=== PATIENT | female | born 1950 | race African-American/Black ===

== ENCOUNTER 2017-02-01 14:30 | Inpatient (IN) | payer MEDICARE, MEDICAID ==
[~2017-02-01] VITALS: Ht 175.3 cm; Wt 81.6 kg
[~2017-02-01 14:30] MED LIST: AMBIEN10 M1 ORAL; ANTIVERT25 MG ORAL; ARICEPT10 MG ORAL; MOBIC7.5 MG ORAL; RAMIPRIL5 MG ORAL; SIMVASTATIN20 MG ORAL; TOPROL XL50 MG ORAL; TRAMADOL HCL50 MG ORAL; ZOLOFT25 MG ORAL
[2017-02-01 14:45] VITALS: BP 141/82
[2017-02-01] MEDS ORDERED: Sodium Chloride 500ML 500 ML IV ONE (14:57)
[2017-02-01 15:31] LABS: BASOPHILS % (AUTO) 1.2 % (0.0-2.0); EOSINOPHILS % (AUTO) 0.8 % (0.0-3.0); LYMPHOCYTES % (AUTO) 20.7 % (20.0-45.0); MEAN CORPUSCULAR HEMOGLOBIN 33.4 PG (27.0-31.0); MEAN CORPUSCULAR HGB CONC 32.6 G/DL (32.0-36.0); MEAN CORPUSCULAR VOLUME 103 FL (80-99); MEAN PLATELET VOLUME 8.2 FL (6.5-10.1); MONOCYTES % (AUTO) 8.4 % (1.0-10.0); NEUTROPHILS % (AUTO) 68.9 % (45.0-75.0); PLATELET COUNT 182 K/UL (150-450); RED BLOOD COUNT 3.96 M/UL (4.20-5.40); WHITE BLOOD COUNT 7.1 K/UL (4.8-10.8)
[2017-02-01 16:14] LABS: ANION GAP 11 mmol/L (5-15); CALCIUM 9.4 MG/DL (8.5-10.1); CARBON DIOXIDE 27 MMOL/L (21-32); CHLORIDE 107 MMOL/L (98-107); CREATININE 1.1 MG/DL (0.55-1.30); GLOMERULAR FILTRATION RATE > 60 mL/min (>60); POTASSIUM 3.8 MMOL/L (3.5-5.1); SODIUM 145 MMOL/L (136-145)
[2017-02-01 16:23] LABS: ALANINE AMINOTRANSFERASE 22 U/L (12-78); ASPARTATE AMINO TRANSFERASE 20 U/L (15-37)
[2017-02-01 16:26] LABS: APPEARANCE,URINE CLEAR; KETONES,URINE NEGATIVE (NEGATIVE); NITRITE,URINE NEGATIVE (NEGATIVE); PH,URINE 6 (4.5-8.0); PROTEIN,URINE NEGATIVE (NEGATIVE); UROBILINOGEN,URINE NORMAL MG/DL (0.0-1.0)
[2017-02-01 16:27] LABS: CKMB < 0.5 NG/ML (0.0-3.6)
[2017-02-01 16:31] LABS: LEUKOCYTE ESTERASE ,URINE TRACE (NEGATIVE); RBC,URINE 0-2 /HPF (0 - 2); SQUAMOUS EPITHELIAL CELL,UR FEW /LPF (NONE/OCC)
[2017-02-01 16:32] LABS: MUCUS,URINE FEW /LPF (NONE/OCC)
[2017-02-01 17:15] VITALS: BP 173/101
[2017-02-01 18:03] VITALS: BP 170/103
[2017-02-01] MEDS ORDERED: PAROXETINE HCL40 MG (18:45)
[2017-02-01] MEDS ORDERED: LISINOPRIL20 MG (18:45)
[2017-02-01] MEDS ORDERED: HYDRALAZINE HCL25 M2 (18:45)
[2017-02-01] MEDS ORDERED: MIRTAZAPINE45 MG (18:45)
[2017-02-01] MEDS ORDERED: SAPHRIS10 MG (18:45)
[2017-02-01] MEDS ORDERED: METOPROLOL TART50 M1 (18:45)
[2017-02-01] MEDS ORDERED: AMBIEN CR12.5 MG (18:45)
[2017-02-01] MEDS ORDERED: ANORO ELLIPTA1 EACH (18:45)
[2017-02-01 19:20] VITALS: BP 165/91
[2017-02-01 20:50] VITALS: BP 154/93
--- NOTE | 2017-02-01 20:53 | Emergency Room Report ---
History of Present Illness General Chief Complaint: General Complaint Source: Patient Present Illness HPI 66-year-old female presents ED complaining of shortness of breath. States she' s been having shortness of breath for the last several days. Feel short of breath at rest. Denies any chest pain. Denies any fevers or chills. Denies cough. Patient states she also feels weak. Denies sick contacts or recent travel. No other aggravating relieving factors. Denies any other associated symptoms Allergies: Coded Allergies: CODEINE (Unverified Allergy, Unknown, 10/03/15) Patient History Past Medical History: HTN, GERD Pertinent Family History: none Social History: Denies: smoking, alcohol use, drug use Now: No Immunizations: UTD Reviewed Nursing Documentation: PMH: Agreed, PSxH: Agreed Nursing Documentation-PMH Hx Cardiac Problems: Yes - MurmurHyperlipidemia, Goiter Hx Hypertension: Yes Hx Gastrointestinal Problems: Yes - GERD Hx Neurological Problems: Yes - Scoliosis AMS, muscle spasm Review of Systems All Other Systems: negative except mentioned in HPI Physical Exam Vital Signs Date Time Temp Pulse Resp B/P (MAP) Pulse Ox O2 Delivery O2 Flow Rate FiO2 02/01/17 14:35 97.5 81 20 138/80 99 Room Air Sp02 EP Interpretation: reviewed, normal General Appearance: no apparent distress, alert, GCS 15, non-toxic Head: normocephalic, atraumatic Eyes: bilateral eye normal inspection, bilateral eye PERRL ENT: hearing grossly normal, normal pharynx, no angioedema, normal voice Neck: full range of motion, supple/symm/no masses Respiratory: chest non-tender, lungs clear, normal breath sounds, speaking full sentences Cardiovascular #1: regular rate, rhythm, no edema Cardiovascular #2: 2+ carotid (R), 2+ carotid (L), 2+ radial (R), 2+ radial (L) , 2+ dorsalis pedis (R), 2+ dorsalis pedis (L) Gastrointestinal: normal bowel sounds, non tender, soft, non-distended, no guarding, no rebound Rectal: deferred Genitourinary: normal inspection, no CVA tenderness Musculoskeletal: back normal, gait/station normal, normal range of motion, non- tender Neurologic: alert, oriented x3, responsive, motor strength/tone normal, sensory intact, speech normal Psychiatric: judgement/insight normal, memory normal, mood/affect normal, no suicidal/homicidal ideation Reflexes: 3+ bicep (R), 3+ bicep (L), 3+ tricep (R), 3+ tricep (L), 3+ knee (R) , 3+ knee (L) Skin: normal color, no rash, warm/dry, well hydrated Lymphatic: no adenopathy Medical Decision Making Diagnostic Impression: Primary Impression: SOB (shortness of breath) ER Course Hospital Course 66-year-old female presents ED complaining of SOB at rest Differential diagnoses include: WA/unstable angina, PE, bronchitis, asthma Clinical course 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 After initial history and physical I ordered labs, EKG, chest x-ray, IVFs labs reviewed- no leukocytosis, hemoglobin/hematocrit stable, electrolytes ok, troponins negative, d-dimer elevated EKG - NSR, no acute ischemic changes, twave inversions in lateral leads Chest x-ray- unremarkable CTA chest- nondiagnostic for PE Patient remained short of breath while at rest. I recommended patient be admitted patient agrees with plan. Case discussed with Dr. Solis and he agreed to accept the patient to his service for further care and support I. I feel this is a highly complex case requiring extensive working including EKG/Rhythm strip, Xray/CT/US, Blood/urine lab work, repeat exams while in ED, and administration of strong opiates/narcotics for pain control, admission to hospital or close patient follow up. Diagnosis - Shortness of Breath admitted to telemetry in serious condition Labs Test 02/01/17 15:10 02/01/17 16:01 White Blood Count 7.1 K/UL (4.8-10.8) Red Blood Count 3.96 M/UL (4.20-5.40) Hemoglobin 13.2 G/DL (12.0-16.0) Hematocrit 40.6 % (37.0-47.0) Mean Corpuscular Volume 103 FL (80-99) Mean Corpuscular Hemoglobin 33.4 PG (27.0-31.0) Mean Corpuscular Hemoglobin Concent 32.6 G/DL (32.0-36.0) Red Cell Distribution Width 12.0 % (11.6-14.8) Platelet Count 182 K/UL (150-450) Mean Platelet Volume 8.2 FL (6.5-10.1) Neutrophils (%) (Auto) 68.9 % (45.0-75.0) Lymphocytes (%) (Auto) 20.7 % (20.0-45.0) Monocytes (%) (Auto) 8.4 % (1.0-10.0) Eosinophils (%) (Auto) 0.8 % (0.0-3.0) Basophils (%) (Auto) 1.2 % (0.0-2.0) D-Dimer 4.12 mg/L FEU (0.00-0.49) Sodium Level 145 MMOL/L (136-145) Potassium Level 3.8 MMOL/L (3.5-5.1) Chloride Level 107 MMOL/L (98-107) Carbon Dioxide Level 27 MMOL/L (21-32) Anion Gap 11 mmol/L (5-15) Blood Urea Nitrogen 14 mg/dL (7-18) Creatinine 1.1 MG/DL (0.55-1.30) Estimat Glomerular Filtration Rate > 60 mL/min (>60) Glucose Level 136 MG/DL (74-106) Calcium Level 9.4 MG/DL (8.5-10.1) Total Bilirubin 0.8 MG/DL (0.2-1.0) Aspartate Amino Transf (AST/SGOT) 20 U/L (15-37) Alanine Aminotransferase (ALT/SGPT) 22 U/L (12-78) Alkaline Phosphatase 52 U/L (46-116) Total Creatine Kinase 131 U/L (26-140) Creatine Kinase MB < 0.5 NG/ML (0.0-3.6) Creatine Kinase MB Relative Index 0.3 Troponin I 0.006 ng/mL (0.000-0.056) Pro-B-Type Natriuretic Peptide 203 pg/mL (0-125) Total Protein 7.0 G/DL (6.4-8.2) Albumin 3.5 G/DL (3.4-5.0) Globulin 3.5 g/dL Albumin/Globulin Ratio 1.0 (1.0-2.7) Urine Color Yellow Urine Appearance Clear Urine pH 6 (4.5-8.0) Urine Specific [place] 1.015 (1.005-1.035) Urine Protein Negative (NEGATIVE) Urine Glucose (UA) Negative (NEGATIVE) Urine Ketones Negative (NEGATIVE) Urine Occult Blood Negative (NEGATIVE) Urine Nitrite Negative (NEGATIVE) Urine Bilirubin Negative (NEGATIVE) Urine Urobilinogen Normal MG/DL (0.0-1.0) Urine Leukocyte Esterase Trace (NEGATIVE) Urine RBC 0-2 /HPF (0 - 2) Urine WBC 2-4 /HPF (0 - 2) Urine Squamous Epithelial Cells Few /LPF (NONE/OCC) Urine Bacteria None /HPF (NONE) Urine Mucus Few /LPF (NONE/OCC) EKG Diagnostic Results Rate: normal Rhythm: NSR ST Segments: other - twave inversions in lateral leads ASA given to the pt in ED: No Rhythm Strip Diag. Results EP Interpretation: yes Rhythm: NSR, no PVC's Chest X-Ray Diagnostic Results Chest X-Ray Diagnostic Results : Chest X-Ray Ordered: Yes # of Views/Limited/Complete: 1 View Indication: Shortness of Breath EP Interpretation: Yes Interpretation: no consolidation, no effusion, no pneumothorax, no acute cardiopulmonary disease Impression: No acute disease Electronically Signed by: Electronically signed by Cj Gupta MD CT/MRI/US Diagnostic Results CT/MRI/US Diagnostic Results : Imaging Test Ordered: CTA CHest Impression no evidence of PE Last Vital Signs Date Time Temp Pulse Resp B/P (MAP) Pulse Ox O2 Delivery O2 Flow Rate FiO2 02/01/17 19:20 98.0 63 22 165/91 98 Room Air Status: improved Disposition: ADMITTED INPATIENT Condition: Serious Referrals: NON PHYSICIAN (PCP) CJ GUPTA M.D. Feb 01, 2017 20:53
[2017-02-01 21:10] VITALS: BP 162/100
[2017-02-01] MEDS ORDERED: Zolpidem 5mg tab ORAL PRN (21:45)
[2017-02-01] MEDS ORDERED: traMADol 50mg tab ORAL PRN (21:45)
[2017-02-01] MEDS ORDERED: Albuterol/Ipratropium 3ml neb HHN PRN (21:45)
[2017-02-01] MEDS: HydrALAZINE 50mg tab ORAL SCH (22:11)
[2017-02-02] VITALS: BP 131/84
[2017-02-02 04:02] VITALS: BP 133/80
[2017-02-02] MEDS: HydrALAZINE 50mg tab ORAL SCH ×3 (06:00→21:05)
[2017-02-02 08:00] VITALS: BP 147/86
[2017-02-02] MEDS: Metoprolol Succinate XL 50mg tab ORAL SCH (08:21)
[2017-02-02] MEDS: Meclizine 25mg tab ORAL SCH ×3 (09:00→18:00)
[2017-02-02] MEDS: Heparin 5000 units/ml inj SUBQ SCH ×2 (09:00→20:41)
[2017-02-02] MEDS: PARoxetine 10mg tab ORAL SCH (09:00)
[2017-02-02] MEDS ORDERED: Lisinopril 20mg tab ORAL SCH (09:00)
[2017-02-02] MEDS: Donepezil 10mg tab ORAL SCH (09:00)
--- NOTE | 2017-02-02 09:31 | Diagnostic Imaging Report ---
Indication: Shortness of breath Technique: CT pulmonary angiogram performed utilizing automated exposure control with intravenous contrast. Axial, sagittal and coronal reconstructions were obtained. 3-D volumetric reconstructions were also performed. CT dose: Total DLP 883 mGycm; CTDI vol 23.9 mGy Comparison: Chest x-ray from earlier the same day Findings: There is inadequate opacification of the pulmonary arteries limiting evaluation. There is no evidence of aortic dissection. Atherosclerotic changes are present. There is trace pericardial fluid. No pleural effusion is identified. Linear and dependent opacities are seen within the bilateral lower lobes suggestive of atelectasis or scarring. There is no bulky mediastinal or hilar adenopathy. There is heterogeneous appearance of the thyroid with apparent hypodense nodules measuring up to 1.4 cm on the left. Degenerative changes of the spine are seen. Impression: Inadequate opacification of the pulmonary arteries limiting evaluation for pulmonary embolus. No gross central pulmonary embolus but the pulmonary emboli otherwise not adequately evaluated. Repeat examination or VQ scan recommended for further evaluation. Mild linear and dependent bilateral lower lobe opacities could represent atelectasis or scarring. Atherosclerotic changes. Heterogeneous thyroid with hypodense nodules measuring up to 1.4 cm on the left. Correlation with ultrasound recommended. Other findings as above. The CT scanner at [facility] is accredited by the [employer] and the scans are performed using protocols designed to limit radiation exposure to as low as reasonably achievable to attain images of sufficient resolution adequate for diagnostic evaluation.
--- NOTE | 2017-02-02 10:55 | Diagnostic Imaging Report ---
Indication: Shortness of breath Technique: XRAY CHEST 1 V Comparison: 10/03/15 Findings: Cardiac silhouette is prominent. There is no consolidation or pleural effusion. Osseous structures are grossly stable. Impression: No acute cardiopulmonary disease.
[2017-02-02 12:33] VITALS: BP 141/97
--- NOTE | 2017-02-02 15:04 | Cardiology Report ---
APPROVED REPORT EXAM: Two-dimensional and M-mode echocardiogram with Doppler and color Doppler. INDICATION Angina Pectoris M-Mode DIMENSIONS IVSd1.8 (0.7-1.1cm)Left Atrium (MM)3.8 (1.6-4.0cm) LVDd2.8 (3.5-5.6cm)Aortic Root3.0 (2.0-3.7cm) PWd1.5 (0.7-1.1cm)Aortic Cusp Exc.2.0 (1.5-2.0cm) LVDs1.1 (2.5-4.0cm) PWs2.4 cm Normal left ventricular chamber size, systolic function and wall motion. Left ventricular ejection fraction estimated to be 65-70 %. Moderate left ventricular hypertrophy. Anterior Echo-free space, may be due to pericardial fat or effusion. All other cardiac chamber sizes are within normal limits. Mild focal aortic valve sclerosis with adequate cusp excursion. Thickened mitral valve leaflets with normal excursion. Mild mtral annulus and aortic root calcification. Pulmonic valve not well visualized. Normal tricuspid valve structure. IVC measures at 1.9 cm with physiologic collapse, estimated RAP is 10 mmHg. A color flow and spectral Doppler study was performed and revealed: No aortic regurgitation. Trace mitral regurgitation. Mitral diastolic velocities suggest reduced left ventricular relaxation c/w mild diastolic dysfunction (Grade I). Mild tricuspid regurgitation. Tricuspid systolic velocities suggests peak right ventricular systolic pressure of 32 mmHg. No pulmonic regurgitation present.
--- NOTE | 2017-02-02 15:29 | Cardiology Report ---
APPROVED REPORT EKG Measurement Heart [id number] CT [id number] Normal sinus rhythm Possible Left atrial enlargement T wave abnormality, consider inferolateral ischemia Abnormal ECG
[2017-02-02 16:00] VITALS: BP 143/96
--- NOTE | 2017-02-02 19:30 | Progress Note ---
DATE: 02/02/2017 CARDIOLOGY PROGRESS NOTE SUBJECTIVE: The patient still feels short of breath. She has no energy. She notes minimal improvement since last night. She is not having any chest pain. Workup to date her echocardiogram revealed normal ejection fraction, minimal tricuspid regurgitation, PA systolic pressure of 32 mmHg which is normal, diastolic dysfunction. CT pulmonary angiogram was limited but negative to the extent the arteries were visualized. There were some thyroid nodules noted heterogeneously. Troponins are negative. PHYSICAL EXAMINATION: VITAL SIGNS: Blood pressure 147/74, pulse 66, respiratory rate 18, and afebrile. Monitored rhythm, sinus. HEENT: Conjunctivae pink. Oropharynx clear. NECK: Supple. Jugular venous pressure normal. LUNGS: Clear. CARDIAC: Regular rhythm and rate. Normal S1 and S2. No murmur appreciated. ABDOMEN: Soft and nontender. EXTREMITIES: No edema. LABORATORY DATA: TSH is normal. IMPRESSION: 1. Dyspnea, weakness, fatigued progressive. 2. Hypertensive heart disease with diastolic dysfunction and no clinical signs of acute congestive heart failure. 3. History of thyroid goiter with euthyroid state. 4. history of depression on antidepressant therapy. PLAN: 1. Agree with abdominal CAT scan. 2. We will obtain exercise myocardial perfusion scan to assess for ischemia. 3. Advance antihypertensive regimen. 4. Venous duplex scan. 5. Otherwise await results of these studies. Hunter Fairbanks M.D. DR: Zahra JOB#: [id number] CC:
--- NOTE | 2017-02-02 19:45 | Consultation ---
DATE OF CONSULTATION: 02/01/2017 CARDIOLOGY CONSULTATION CONSULTING PHYSICIAN: Hunter Fairbanks M.D. REFERRING PHYSICIAN: Stanley Solis M.D. REASON FOR CONSULTATION: Shortness of breath. HISTORY OF PRESENT ILLNESS: This is a 66-year-old female with history of hypertension but no other known cardiovascular disease. She presented to the emergency room complaining of approximately two weeks of progressive shortness of breath worsening over the past few days. She has noted orthopnea. She noted dyspnea on exertion. She noted profound progressive fatigue. She has not had any fever, chills, cough, sputum production. She has not had any recent upper respiratory or other infections. She has not had any recent travel or sick contacts. No chest pain. No new change. No new medication. PAST MEDICAL HISTORY: Hypertension, gastroesophageal reflux disease, depression, degenerative disk disease, scoliosis, hyperlipidemia, history of goiter, history of heart murmur. ALLERGIES: Codeine. MEDICATIONS: Prior to admission reviewed and reconciled. SOCIAL HISTORY: Denies smoking, alcohol, or substance abuse. FAMILY HISTORY: Noncontributory. REVIEW OF SYSTEMS: A 10-point review of systems performed. All systems negative other than noted above. PHYSICAL EXAMINATION: GENERAL: The patient is well appearing, no apparent distress, nontoxic, afebrile. VITAL SIGNS: Blood pressure 138/80, pulse 81, respiratory rate 20, oxygen saturation on room air 99%. HEENT: Normocephalic and atraumatic. Conjunctivae pink. Sclerae are anicteric. Oropharynx clear. Mucous membranes moist. NECK: Supple. Jugular venous pressure normal. Normal carotid upstrokes. LUNGS: clear. CARDIAC: Regular rhythm and rate. Normal S1 and S2. There is a soft 1/6 early systolic apical murmur. ABDOMEN: Soft and nontender. No guarding. No rebound. No bruits. EXTREMITIES: Good pulses. No edema. NEUROLOGIC: Nonfocal. LABORATORY AND DIAGNOSTIC DATA: EKG sinus rhythm, inferolateral T-wave abnormalities. Chest x-ray, no acute process. Troponin negative. D-dimer is somewhat elevated. IMPRESSION: Dyspnea, rule out pulmonary embolic event, consider congestive heart failure, although clinically not present. Oxygen saturation will be checked on room air. Cardiac monitoring initiated. Echocardiogram. Thyroid panel. Further recommendations will follow once these preliminary studies are reviewed. Hunter Fairbanks M.D. DR: Zahra JOB#: [id number] CC:
[2017-02-02 20:04] VITALS: BP 145/85
--- NOTE | 2017-02-02 20:45 | History and Physical Report ---
DATE OF ADMISSION: 02/01/2017 CHIEF COMPLAINT: Shortness of breath, fatigue, and weight loss. HISTORY OF PRESENT ILLNESS: The patient is a pleasant 66-year-old female. She has a history of hypertensive heart disease presents with complaints of shortness of breath for approximately 10 days ago. According to the patient, she has had worsening dyspnea on exertion and some mild shortness of breath at rest for about 10 days. She denies any fevers or chills. She has had no cough. Denies any chest pain. In addition to the shortness of breath, she has had three weeks of poor appetite with a 10-pound weight loss. She denies any abdominal pain. No melena. No bright red blood per rectum. On evaluation in the emergency room, initial workup including chest x-ray, labs, and CT of the chest were unremarkable. Because of the patient's persistent shortness of breath, she is now admitted for further evaluation and care. PAST MEDICAL HISTORY: As above. PAST SURGICAL HISTORY: None. CURRENT MEDICATIONS: Reconciled and reviewed. ALLERGIES: None. FAMILY HISTORY: Significant for heart disease and dementia. SOCIAL HISTORY: Negative for tobacco, ethanol, or drugs. REVIEW OF SYSTEMS: GENERAL: Positive for malaise and weakness. Positive weight loss. HEENT: No headaches or visual changes. CARDIOPULMONARY: No chest pain. Positive shortness of breath. GASTROINTESTINAL: No nausea or vomiting. GENITOURINARY: No urgency or frequency. MUSCULOSKELETAL: No joint pain or swelling. NEUROLOGIC: No evidence of seizures. PHYSICAL EXAMINATION: VITAL SIGNS: Temperature 98 degrees, blood pressure 147/74, pulse 66, respirations 20. GENERAL: The patient is a well-developed female, in no apparent distress. She is awake and alert. NECK: Supple. There is no lymphadenopathy. HEART: Regular rate and rhythm. LUNGS: Clear. ABDOMEN: Soft, nontender, and nondistended. EXTREMITIES: Without clubbing, cyanosis, or edema. LABORATORY DATA: White count was 8.7, hemoglobin 13, hematocrit 40, platelets 182. Sodium 145, potassium 3.8, and creatinine was 1.1. Troponin was negative. UA was clear. ASSESSMENT: This is a pleasant female admitted with complaints of shortness of breath, unclear etiology. 1. Shortness of breath and dyspnea, unclear etiology, rule out congestive heart failure, rule out coronary artery disease. 2. Weight loss, also unclear etiology. 3. Hypertension. PLAN: 1. CT scan of the abdomen. 2. We will follow CT scan of the chest. 3. Cardiology consultation. 4. We will check some tumor markers. 5. Consider endoscopy in light of the patient's anorexia and weight loss. Stanley Solis M.D. DR: Makayla JOB#: [id number] CC:
[2017-02-02] MEDS ORDERED: Milk of Magnesia 30ml Ud ORAL PRN (22:00)
[2017-02-03] MEDS: Zolpidem 5mg tab ORAL PRN (00:07)
[2017-02-03 00:39] VITALS: BP 126/73
[2017-02-03 04:00] VITALS: BP 120/64
[2017-02-03] MEDS: HydrALAZINE 50mg tab ORAL SCH ×3 (05:30→22:00)
[2017-02-03 08:12] VITALS: BP 143/88
[2017-02-03] MEDS: Lisinopril 20mg tab ORAL SCH (08:12)
--- NOTE | 2017-02-03 08:37 | General Progress Note ---
Assessment/Plan Problem List: (1) Adverse reaction to drug ICD Codes: T88.7XXA - Unspecified adverse effect of drug or medicament, initial encounter SNOMED: 08552407 (2) Anxiety ICD Codes: F41.9 - Anxiety disorder, unspecified SNOMED: 71460065 (3) SOB (shortness of breath) ICD Codes: R06.02 - Shortness of breath SNOMED: 328814233 Status: stable, not improved Assessment/Plan vq scan stress test antiplt rx follow up labs o2 prn dvt/stress ulcer prophylaxis Subjective ROS Limited/Unobtainable: No Constitutional: Reports: malaise, weakness HEENT: Reports: no symptoms Cardiovascular: Reports: no symptoms Respiratory: Reports: cough, shortness of breath Gastrointestinal/Abdominal: Reports: no symptoms Genitourinary: Reports: no symptoms Neurologic/Psychiatric: Reports: no symptoms Endocrine: Reports: no symptoms Hematologic/Lymphatic: Reports: no symptoms Allergies: Coded Allergies: CODEINE (Unverified Allergy, Unknown, 10/03/15) All Systems: reviewed and negative except above Subjective still does not feel well. continued sob at rest. no chest pain no fever or chills. cards noted. stress test and vq ordered. Objective Last 24 Hour Vital Signs Date Time Temp Pulse Resp B/P (MAP) Pulse Ox O2 Delivery O2 Flow Rate FiO2 02/03/17 08:12 97.7 65 18 143/88 99 02/03/17 08:12 144/88 02/03/17 05:30 120/64 02/03/17 04:00 70 02/03/17 04:00 98.0 70 20 120/64 100 Room Air 02/03/17 00:39 98.4 74 20 126/73 95 Room Air 02/03/17 00:00 104 02/02/17 21:05 145/85 02/02/17 20:04 98.2 60 18 145/85 97 Room Air 02/02/17 20:00 75 02/02/17 20:00 70 16 Room Air 21 02/02/17 19:30 97 Room Air 21 02/02/17 16:00 61 02/02/17 16:00 98.7 61 20 143/96 97 Room Air 02/02/17 12:33 98.3 65 20 141/97 97 Room Air 02/02/17 12:00 69 Height (Feet): 5 Height (Inches): 9.00 Weight (Pounds): 180 General Appearance: WD/WN, alert Neck: supple Cardiovascular: regular rhythm Respiratory/Chest: chest wall non-tender, lungs clear, normal breath sounds Abdomen: normal bowel sounds, non tender, soft, no organomegaly Edema: no edema noted Arm (L), no edema noted Arm (R), no edema noted Leg (L), no edema noted Leg (R), no edema noted Pedal (L), no edema noted Pedal (R), no edema noted Generalized OSBALDO DOUGLAS Feb 03, 2017 08:37
[2017-02-03] MEDS: Heparin 5000 units/ml inj SUBQ SCH ×2 (09:00→21:00)
[2017-02-03] MEDS: Docusate 250mg cap ORAL SCH ×2 (09:00→18:00)
[2017-02-03] MEDS: Meclizine 25mg tab ORAL SCH ×3 (09:00→18:00)
[2017-02-03] MEDS: Donepezil 10mg tab ORAL SCH (09:00)
[2017-02-03] MEDS: Metoprolol Succinate XL 50mg tab ORAL SCH (09:00)
[2017-02-03] MEDS: PARoxetine 10mg tab ORAL SCH (09:00)
--- NOTE | 2017-02-03 09:35 | Diagnostic Imaging Report ---
Indication: Abdominal pain Technique: Spiral acquisitions obtained through the abdomen and pelvis. Patient given oral contrast. No IV contrast utilized, per referring physician request. Multiplanar reconstructions were generated. Total dose length product 765 mGycm. CTDIvol(s) 14 mGy. Dose reduction achieved using automated exposure control Comparison: 02/14/2009 contrast study Findings: The appendix is not definitely visualized, but there are no findings to suggest acute appendicitis. There is no evidence of diverticulosis or diverticulitis. No small bowel distention. Contrast is seen throughout the entirety of the small bowel and well into the colon. Stomach is nondistended. No small bowel wall thickening. There is a tiny fat-containing umbilical hernia. Lack of IV contrast limits assessment of the solid organs. The gallbladder is filled with somewhat dense material. The liver, bile ducts, pancreas, spleen, adrenals, kidneys are unremarkable. No retroperitoneal or mesenteric mass or adenopathy. There is a 2.4 cm cyst in the right ovary. This was not evident previously No pelvic mass or adenopathy otherwise. Contrast is seen within the bladder. The lung bases again demonstrate basilar and peripheral scarring. Bones demonstrate grade 1 spondylolisthesis of L4 on L5. No evident pars defect. There is also some disc bulge at this level. Again demonstrated is a right iliac wing osteochondroma which appears unchanged Impression: No acute abnormality 2.4 cm cyst in the right ovary with benign features. As this measures 3 cm, no further followup necessary per ACR guidelines for followup of incidental findings Dense material within the gallbladder, presumably excreted contrast from earlier chest contrast study Contrast within the bladder, likewise presumably from earlier chest CT L4 on L5 grade 1 spondylolisthesis. 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
[2017-02-03 11:38] VITALS: BP 127/81
[2017-02-03 15:27] VITALS: BP 117/73
--- NOTE | 2017-02-03 16:09 | Diagnostic Imaging Report ---
Indications: Chest pain Technique: Single day single isotope protocol utilized. See cardiology report for details of treadmill stress testing. During treadmill test, IV administration 30.5 mCi 99 M technetium Cardiolite. SPECT and planar images obtained. SPECT images gated to 8 phases of the cardiac cycle were also obtained, and reformatted into cine images for evaluation of ejection fraction. Earlier the same day, resting images obtained using IV administration 9.8 mCi 99 M technetium Cardiolite. Comparison:None Findings: Patient achieved exercise heart rate of 134 beats for minute, in excess of the target heart rate 130 beats per minute. Patient experienced fatigue. Resting EKG demonstrates sinus rhythm with PACs, per cardiology report. Imaging demonstrates normal post stress perfusion. No fixed nor reversible post stress perfusion defects are demonstrated. Normal cardiac chamber size. Calculated post stress ejection fraction is 75%. No focal wall motion abnormality demonstrated Impression:Nonischemic clinical response to exercise stress, per cardiology report Nonischemic echocardiographic response to exercise stress, per cardiology report No imaging findings to suggest ischemia, at level of stress achieved Normal calculated ejection fraction, in excess of 70%
[2017-02-03 20:00] VITALS: BP 129/76
[2017-02-04] VITALS: BP 131/64
[2017-02-04] MEDS: Zolpidem 5mg tab ORAL PRN (00:21)
[2017-02-04 04:00] VITALS: BP 116/61
--- NOTE | 2017-02-04 04:00 | Progress Note ---
DATE: 02/03/2017 CARDIOLOGY PROGRESS NOTE SUBJECTIVE: The patient had a stress test today. There is no evidence of ischemia by electrocardiographic criteria, but previous perfusion scan was normal with ejection fraction of 70%. The patient has shortness of breath, but no chest pain. She continues to feel weak. A V/Q scan is pending. OBJECTIVE: VITAL SIGNS: Blood pressure is 143/88, pulse 65, and respirations 18. NECK: Supple. LUNGS: Clear. CARDIAC: Regular. Normal S1, S2 with a fourth heart sound. ABDOMEN: Soft. EXTREMITIES: No edema. DIAGNOSTIC DATA: Monitor, sinus arrhythmia with occasional PACs. IMPRESSION: 1. Low likelihood for flow-limiting coronary artery disease. 2. Sinus arrhythmia. 3. Atrial ectopy. 4. Dyspnea, etiology unclear. 5. Rule out deep vein thrombosis and/or pulmonary emboli. 6. Hypertensive heart disease with labile, but improving blood pressure control. PLAN: 1. Titrate antihypertensives. 2. Await V/Q scan. 3. DVT prophylaxis. 4. We will follow with you during this hospital course. Hunter Fairbanks M.D. DR: ROSE JOB#: [id number] CC:
[2017-02-04] MEDS: HydrALAZINE 50mg tab ORAL SCH ×2 (06:00→15:03)
[2017-02-04 08:00] VITALS: BP 137/90
[2017-02-04 08:05] VITALS: BP 137/90
[2017-02-04 08:44] LABS: BASOPHILS % (AUTO) 1.7 % (0.0-2.0); EOSINOPHILS % (AUTO) 1.6 % (0.0-3.0); LYMPHOCYTES % (AUTO) 25.4 % (20.0-45.0); MEAN CORPUSCULAR HEMOGLOBIN 33.6 PG (27.0-31.0); MEAN CORPUSCULAR HGB CONC 33.1 G/DL (32.0-36.0); MEAN CORPUSCULAR VOLUME 101 FL (80-99); MEAN PLATELET VOLUME 8.4 FL (6.5-10.1); MONOCYTES % (AUTO) 9.4 % (1.0-10.0); NEUTROPHILS % (AUTO) 61.9 % (45.0-75.0); PLATELET COUNT 198 K/UL (150-450); RED CELL DISTRIBUTION WIDTH 11.9 % (11.6-14.8); WHITE BLOOD COUNT 5.2 K/UL (4.8-10.8)
[2017-02-04] MEDS: PARoxetine 10mg tab ORAL SCH (09:00)
[2017-02-04] MEDS: Heparin 5000 units/ml inj SUBQ SCH (09:00)
[2017-02-04] MEDS: Meclizine 25mg tab ORAL SCH ×3 (09:00→18:00)
[2017-02-04] MEDS: Donepezil 10mg tab ORAL SCH (09:00)
[2017-02-04] MEDS: Docusate 250mg cap ORAL SCH ×2 (09:00→18:00)
[2017-02-04] MEDS: Metoprolol Succinate XL 50mg tab ORAL SCH (09:06)
[2017-02-04] MEDS: Lisinopril 20mg tab ORAL SCH (09:06)
--- NOTE | 2017-02-04 09:10 | General Progress Note ---
Assessment/Plan Problem List: (1) Adverse reaction to drug ICD Codes: T88.7XXA - Unspecified adverse effect of drug or medicament, initial encounter SNOMED: 59325935 (2) Anxiety ICD Codes: F41.9 - Anxiety disorder, unspecified SNOMED: 02991384 (3) SOB (shortness of breath) ICD Codes: R06.02 - Shortness of breath SNOMED: 236454360 Status: stable, progressing Assessment/Plan vq scan antiplt rx follow up labs o2 prn dvt/stress ulcer prophylaxis dc planning if vq negative Subjective ROS Limited/Unobtainable: No Constitutional: Reports: weakness HEENT: Reports: no symptoms Cardiovascular: Reports: no symptoms Respiratory: Reports: SOB at rest Gastrointestinal/Abdominal: Reports: no symptoms Genitourinary: Reports: no symptoms Neurologic/Psychiatric: Reports: no symptoms Endocrine: Reports: no symptoms Hematologic/Lymphatic: Reports: no symptoms Allergies: Coded Allergies: CODEINE (Unverified Allergy, Unknown, 10/03/15) All Systems: reviewed and negative except above Subjective stress test negative. feels "a little better" Still with some sob. no cough Objective Last 24 Hour Vital Signs Date Time Temp Pulse Resp B/P (MAP) Pulse Ox O2 Delivery O2 Flow Rate FiO2 02/04/17 09:06 137/90 02/04/17 09:06 75 137/90 02/04/17 08:05 97.7 75 18 137/90 99 Bi-pap 02/04/17 08:00 97.0 95 18 137/90 99 02/04/17 07:15 72 20 Room Air 21 02/04/17 06:00 116/68 02/04/17 04:00 67 02/04/17 04:00 98.4 68 20 116/61 96 02/04/17 00:00 76 02/04/17 00:00 97.5 78 18 131/64 96 02/03/17 22:00 121/74 02/03/17 20:00 98.1 71 20 129/76 99 02/03/17 20:00 75 02/03/17 19:30 75 16 Room Air 21 02/03/17 16:00 86 02/03/17 15:27 97.0 87 18 117/73 98 02/03/17 14:32 127/81 02/03/17 12:00 73 02/03/17 11:38 98.2 72 18 127/81 100 Intake and Output 02/04/17 02/05/17 19:00 07:00 Intake Total 240 ml Balance 240 ml Intake Oral 240 ml Laboratory Tests 02/04/17 08:20: White Blood Count 5.2, Red Blood Count 4.20, Hemoglobin 14.1, Hematocrit 42.5, Mean Corpuscular Volume 101H, Mean Corpuscular Hemoglobin 33.6H, Mean Corpuscular Hemoglobin Concent 33.1, Red Cell Distribution Width 11.9, Platelet Count 198, Mean Platelet Volume 8.4, Neutrophils (%) (Auto) 61.9, Lymphocytes (% ) (Auto) 25.4, Monocytes (%) (Auto) 9.4, Eosinophils (%) (Auto) 1.6, Basophils ( %) (Auto) 1.7, Sodium Level [Pending], Potassium Level [Pending], Chloride Level [Pending], Carbon Dioxide Level [Pending], Blood Urea Nitrogen [Pending], Creatinine [Pending], Estimat Glomerular Filtration Rate [Pending], Glucose Level [Pending], Calcium Level [Pending], Magnesium Level [Pending], Total Bilirubin [Pending], Aspartate Amino Transf (AST/SGOT) [Pending], Alanine Aminotransferase (ALT/SGPT) [Pending], Alkaline Phosphatase [Pending], Pro-B- Type Natriuretic Peptide [Pending], Total Protein [Pending], Albumin [Pending], Globulin [Pending] Height (Feet): 5 Height (Inches): 9.00 Weight (Pounds): 180 Objective General Appearance: WD/WN, alert Neck: supple Cardiovascular: regular rhythm Respiratory/Chest: chest wall non-tender, lungs clear, normal breath sounds Abdomen: normal bowel sounds, non tender, soft, no organomegaly Edema: no edema noted Arm (L), no edema noted Arm (R), no edema noted Leg (L), no edema noted Leg (R), no edema noted Pedal (L), no edema noted Pedal (R), no edema noted Generalized OSBALDO DOUGLAS Feb 04, 2017 09:10
[2017-02-04 09:20] LABS: ALANINE AMINOTRANSFERASE 17 U/L (12-78); ALBUMIN/GLOBULIN RATIO 0.9 (1.0-2.7); ANION GAP 10 mmol/L (5-15); ASPARTATE AMINO TRANSFERASE 17 U/L (15-37); CALCIUM 9.2 MG/DL (8.5-10.1); CARBON DIOXIDE 29 MMOL/L (21-32); CHLORIDE 105 MMOL/L (98-107); GLOMERULAR FILTRATION RATE > 60 mL/min (>60); MAGNESIUM 2.1 MG/DL (1.8-2.4); POTASSIUM 3.9 MMOL/L (3.5-5.1); SODIUM 144 MMOL/L (136-145); TOTAL PROTEIN 7.4 G/DL (6.4-8.2)
[2017-02-04 10:03] LABS: BILIRUBIN,DIRECT 0.2 MG/DL (0.0-0.3)
[2017-02-04 10:20] LABS: CA 125 11.1 U/mL (0.0-38.1)
[2017-02-04 11:34] VITALS: BP 136/83
[2017-02-04 15:16] VITALS: BP 129/77
--- NOTE | 2017-02-04 16:47 | Diagnostic Imaging Report ---
Indications: Shortness of breath Technique: IV administration 5.5 mCi 99m technetium macroaggregated albumin. Images obtained over the lungs in multiple projections. Previously, patient inhaled 40 mCi aerosolized 99M technetium DTPA. Images obtained over the lungs in multiple projections Comparison: Reference made to chest radiograph dated 02/01/2017 Findings: Slightly heterogeneous perfusion, but overall no focal segmental or subsegmental perfusion defects demonstrated. Similar appearing aerosol scan, no evidence of ventilation/perfusion mismatch demonstrated. Impression: Findings deemed low probability for pulmonary embolus
--- NOTE | 2017-02-05 | Progress Note ---
DATE: 02/04/2017 CARDIOLOGY PROGRESS NOTE SUBJECTIVE: The patient noted without new complaints, still feels weak, but has less shortness of breath. OBJECTIVE: VITAL SIGNS: Blood pressure 137/90, pulse 75, and respiratory rate 18. Overall blood pressure range is quite adequate. LUNGS: Clear. CARDIAC: Regular. Normal S1, S2. ABDOMEN: Soft. EXTREMITIES: No edema. LABORATORY AND DIAGNOSTIC DATA: V/Q scan, low probability. Myocardial perfusion scan with stress revealed normal ejection fraction and perfusion. Echocardiogram revealed normal ejection fraction and no significant valvular pathology. IMPRESSION AND PLAN: 1. No evidence of acute cardiopulmonary pathology. 2. Hypertensive heart disease with diastolic dysfunction. 3. Mood disorder. 4. Euthyroid state, on replacement therapy. 5. Stable for outpatient followup on current medication regimen. Hunter Fairbanks M.D. DR: JULIEN JOB#: [id number] CC:
--- NOTE | 2017-02-05 23:17 | Discharge Summary ---
Discharge Summary Hospital Course Date of Admission Feb 01, 2017 at 17:21 Date of Discharge Feb 04, 2017 at 18:30 Admitting Diagnosis shortness of breath HPI Nori Shahid is a 66 year old female who was admitted on Feb 01, 2017 at 17: 21 for Shortness Of Breath Hospital Course [id number] Discharge Discharge Disposition Patient was discharged to Home (01) Discharge Diagnoses: Adrienne Rao NP Feb 05, 2017 23:17
--- NOTE | 2017-02-06 01:15 | Discharge Summary 2 SIG ---
DATE OF ADMISSION: 02/01/2017 DATE OF DISCHARGE: 02/04/2017 CONSULTANTS: Hunter Fairbanks M.D. BRIEF HOSPITAL COURSE: The patient is a pleasant 66-year-old female with history of hypertensive heart disease, who presented to ED with complaints of shortness of breath approximately 10 days prior to admission. She had worsening dyspnea on exertion associated with shortness of breath. Denied any fevers or chills. No cough. No chest pain. She also had poor appetite with 10-pound weight loss for over 3 weeks. She denied any abdominal pain. No melena. No bright red blood per rectum. On evaluation at the emergency room, initial workup including chest x-ray, laboratories, and CT of the chest were unremarkable but because of the patient's persistent shortness of breath, she was admitted for further care and evaluation. She was admitted to telemetry. Chest and thorax CTA showed inadequate opacification of the pulmonary arteries limiting evaluation for pulmonary embolus. There was no gross central pulmonary embolus noted. She was seen by Dr. Fairbanks. EKG was in sinus rhythm with inferolateral T-wave abnormalities. Troponin was negative. Echocardiogram done showed EF 65% to 70%. She had an elevated D-dimer. V/Q scan done showed low probability for pulmonary embolus. She also underwent myocardial perfusion scan, showed normal ejection fraction and perfusion. She was eventually discharged home. FINAL DIAGNOSES: 1. Shortness of breath. 2. Anxiety. 3. Hypertensive heart disease with diastolic dysfunction. 4. Mood disorder. 5. Euthyroid state, on replacement therapy. 6. Adverse reaction to drug. DISPOSITION: The patient was discharged home. DISCHARGE MEDICATIONS: Refer to medication list. Stanley Solis M.D. I have been assigned to dictate discharge summary on this account and I was not involved in the patient's management. Adrienne Rao N.P. DR: Wanda JOB#: [id number] CC: CHARITO
== END 2017-02-04 18:30 | disposition home or self-care (01) | DRG 204 ==
LOC: EMR 14:45 → 2E 17:21 → EDBEDREQ 17:31
DX: R06.02 Shortness of breath (principal); I11.0 Hypertensive heart disease with heart failure; I50.32 Chronic diastolic (congestive) heart failure; T50.905A Adverse effect of unspecified drugs, medicaments and biological substances, initial encounter; F41.9 Anxiety disorder, unspecified; Y92.009 Unspecified place in unspecified non-institutional (private) residence as the place of occurrence of the external cause; F39 Unspecified mood [affective] disorder; E07.81 Sick-euthyroid syndrome; K21.9 Gastro-esophageal reflux disease without esophagitis; E78.5 Hyperlipidemia, unspecified; Z88.6 Allergy status to analgesic agent
CPT/HCPCS: 36415; 71010; 71275; 74176; 78452; 78579; 78580; 80053; 81003; 82248; 82550; 82553; 82962; 83735; 83880; 84443; 84484; 85025; 85379; 86304; 86710; 93005; 93017; 93306; 94664; 94760; 99285; A9503

== ENCOUNTER 2017-06-22 10:04 | Emergency (ER) | payer MEDICARE, MEDICAID ==
[~2017-06-22] VITALS: Ht 175.3 cm; Wt 81.6 kg
[~2017-06-22 10:04] MED LIST changes: +AMBIEN CR12.5 MG; +ANORO ELLIPTA1 EACH; +HYDRALAZINE HCL25 M2; +LISINOPRIL20 MG; +METOPROLOL TART50 M1; +MIRTAZAPINE45 MG; +PAROXETINE HCL40 MG; +SAPHRIS10 MG
[2017-06-22 10:41] VITALS: BP 171/100
[2017-06-22] MEDS ORDERED: Ketorolac 30mg Inj IM ONE (10:45)
[2017-06-22] MEDS: oxyCODONE HCL/Acetaminophen 5/325mg ORAL ONE ×2 (10:54→11:02)
--- NOTE | 2017-06-22 11:21 | Diagnostic Imaging Report ---
Indication: Chest pain Technique: One view of the chest Comparison: none Findings: No acute infiltrates, effusions, or congestion. Tortuous calcified aorta. Normal heart size. Upper mediastinum unremarkable. There is minimal atelectasis at the left lung base Impression: No acute process.
--- NOTE | 2017-06-22 12:04 | Emergency Room Report ---
History of Present Illness General Chief Complaint: Back Pain-No Injury Source: Patient Present Illness HPI Patient presents with 5 days of severe upper right back and chest pain. Today it's radiating down her right arm. The pain is 10/10, constant and worse when she moves her shoulder or arm about. She denies any fevers, cough, dyspnea, exertional dyspnea, calf pain, edema. She's never had pain this severe before. She saw her MD 2 days ago and he prescribed a muscle relaxant. It's 10 mg but she been doubling up on this. It hasn't helped. The patient denies diabetes or high blood pressure. She was driven here by her . Had work up for dyspnea in past with negative V/Q scan. Allergies: Coded Allergies: CODEINE (Unverified Allergy, Unknown, 10/03/15) Patient History Past Medical History: see triage record Social History: Denies: smoking, alcohol use Social History Narrative - not working Reviewed Nursing Documentation: PMH: Agreed; PSxH: Agreed Nursing Documentation-PMH Hx Cardiac Problems: Yes - Hyperlipidemia Hx Hypertension: Yes Hx Cancer: Yes - Leiomyoma of Uterus Hx Gastrointestinal Problems: Yes - GERD Hx Neurological Problems: No Review of Systems All Other Systems: negative except mentioned in HPI Physical Exam Vital Signs Date Time Temp Pulse Resp B/P (MAP) Pulse Ox O2 Delivery O2 Flow Rate FiO2 06/22/17 10:09 97.7 76 22 180/69 Room Air 97.7 06/22/17 10:41 99 Sp02 EP Interpretation: reviewed, normal General Appearance: well appearing, no apparent distress, GCS 15 Head: normocephalic Eyes: bilateral eye normal inspection, bilateral eye PERRL ENT: moist mucus membranes Neck: supple Respiratory: lungs clear, normal breath sounds, other - R posterior pain - trapezius by inner scapula - recreates pain and also muscle spasm Cardiovascular #1: regular rate, rhythm, no edema Cardiovascular #2: 2+ radial (R) Gastrointestinal: normal inspection, normal bowel sounds, non tender, no mass, non-distended Genitourinary: no CVA tenderness Musculoskeletal: gait/station normal, normal range of motion, no calf tenderness, Jacqueline's Sign negative, other - see chest Neurologic: alert, oriented x3 Skin: normal inspection, warm/dry Medical Decision Making Diagnostic Impression: Primary Impression: Muscle spasm Additional Impression: Posterior chest pain ER Course Patient presents with upper right back pain. Differential includes acute coronary syndrome, pulmonary embolism, muscle spasm, pneumonia, pleurisy, costochondritis amongst others. Her exam is most consistent with muscle spasm. We still need to exclude cardiac cause. History and exam inconsistent with PE. EKG is done chest x-ray. The patient is treated with Toradol and Percocet. Records are reviewed and she was evaluated for dyspnea and V/Q scan was done in the past which is negative. She states that this feels different than that time. Her EKG is abnormal with ST inversions laterally. Review of EKG from 2016 revealed the same pattern of ST inversions. Chest x-ray is unremarkable. The patient is improved after treatment. No medical emergency at this time. Patient stable for outpatient observation and treatment. EKG Diagnostic Results Rate: normal Rhythm: NSR ST Segments: other - ST inversions laterally Rhythm Strip Diag. Results EP Interpretation: yes Rhythm: NSR, no PVC's, no ectopy Chest X-Ray Diagnostic Results Chest X-Ray Diagnostic Results : Chest X-Ray Ordered: Yes # of Views/Limited/Complete: 1 View Indication: Chest Pain Interpretation: no consolidation, no effusion, no pneumothorax Impression: No acute disease Electronically Signed by: Electronically signed by Hunter Navarrete MD Last Vital Signs Date Time Temp Pulse Resp B/P (MAP) Pulse Ox O2 Delivery O2 Flow Rate FiO2 06/22/17 12:36 98.0 62 14 167/94 98 Room Air Status: improved Disposition: HOME, SELF-CARE Condition: Improved Scripts Ibuprofen* (MOTRIN*) 600 Mg Tablet 600 MG ORAL Q6H PRN for For Pain, #20 TAB Prov: Hunter Navarrete M.D. 06/22/17 Methocarbamol* (ROBAXIN*) 500 Mg Tablet 500 MG PO TID, #10 TAB 0 Refills Prov: Hunter Navarrete M.D. 06/22/17 Oxycodone/Acetaminophen 5-325* (PERCOCET 5-325 MG TABLET*) 1 Each Tablet 1 TAB ORAL Q6H PRN for For Pain, #6 TAB Prov: Hunter Navarrete M.D. 06/22/17 Referrals: NON PHYSICIAN (PCP) Hunter Navarrete M.D. Jun 22, 2017 12:04
[2017-06-22] MEDS ORDERED: IBUPROFEN600 MG ORAL (12:30)
[2017-06-22] MEDS ORDERED: ROBAXIN500 MG PO (12:30)
[2017-06-22] MEDS ORDERED: PERCOCET 5-3251 EACH ORAL (12:30)
[2017-06-22 12:36] VITALS: BP 167/94
--- NOTE | 2017-06-23 21:23 | Cardiology Report ---
APPROVED REPORT EKG Measurement Heart [id number] Normal sinus rhythm Possible Left atrial enlargement T wave abnormality, consider inferolateral ischemia Abnormal ECG
== END 2017-06-22 12:39 | disposition home or self-care (01) ==
LOC: EMR 10:55
DX: M62.830 Muscle spasm of back (principal); R07.9 Chest pain, unspecified; Z88.6 Allergy status to analgesic agent; E78.5 Hyperlipidemia, unspecified; I10 Essential (primary) hypertension; Z85.42 Personal history of malignant neoplasm of other parts of uterus; K21.9 Gastro-esophageal reflux disease without esophagitis
CPT/HCPCS: 71045; 93005; 96372; 99284; J1885

== ENCOUNTER 2018-04-29 18:09 | Emergency (ER) | payer MEDICARE, MEDICAID ==
[~2018-04-29] VITALS: Ht 172.7 cm; Wt 72.6 kg
[~2018-04-29 18:09] MED LIST changes: +IBUPROFEN600 MG ORAL; +PERCOCET 5-3251 EACH ORAL; +ROBAXIN500 MG PO
[2018-04-29] MEDS ORDERED: UNOBMED (18:17)
[2018-04-29 18:20] VITALS: BP 176/93
--- NOTE | 2018-04-29 18:20 | NUR ---
ED Nurse Note: pt walked in c/o high blood pressure, pt states she has been having problem with blood pressure lately and she took lisinopril 20mg and hydralazine 25 mg but bp continue to be high and have tingling sensation in her arms, noted high blood pressure 176/115, ERMD notified regarding pt's condition, pt resp even and unlabored on RA, -n/v/d, no facial drooping, dysphagia or weakness noted, good strength and addiction counselor, ambulatory w/ steady gait, will cont monitor.
[2018-04-29] MEDS ORDERED: dilTIAZem HCl 25mg/5ml Inj IVP ONE (19:15)
--- NOTE | 2018-04-29 19:15 | NUR ---
ED Nurse Note: pt off to CT.
[2018-04-29 19:20] VITALS: BP 154/96
[2018-04-29 19:33] LABS: APPEARANCE,URINE CLEAR; BILIRUBIN, URINE NEGATIVE (NEGATIVE); COLOR,URINE PALE YELLOW; GLUCOSE, URINE (UA) NEGATIVE (NEGATIVE); KETONES,URINE NEGATIVE (NEGATIVE); LEUKOCYTE ESTERASE ,URINE 3+ (NEGATIVE); NITRITE,URINE NEGATIVE (NEGATIVE); PH,URINE 7 (4.5-8.0); PROTEIN,URINE NEGATIVE (NEGATIVE); UROBILINOGEN,URINE NORMAL MG/DL (0.0-1.0)
[2018-04-29 19:36] LABS: ANION GAP 9 mmol/L (5-15); BLOOD UREA NITROGEN 14 mg/dL (7-18); CALCIUM 9.2 MG/DL (8.5-10.1); CARBON DIOXIDE 29 MMOL/L (21-32); CHLORIDE 106 MMOL/L (98-107); CREATININE 0.9 MG/DL (0.55-1.30); POTASSIUM 3.9 MMOL/L (3.5-5.1); SODIUM 144 MMOL/L (136-145)
[2018-04-29 19:37] LABS: BASOPHILS % (AUTO) 2.4 % (0.0-2.0); EOSINOPHILS % (AUTO) 2.6 % (0.0-3.0); HEMOGLOBIN 13.7 G/DL (12.0-16.0); INR 1.1 (0.9-1.1); LYMPHOCYTES % (AUTO) 32.9 % (20.0-45.0); MEAN CORPUSCULAR VOLUME 101 FL (80-99); NEUTROPHILS % (AUTO) 53.2 % (45.0-75.0); PLATELET COUNT 187 K/UL (150-450); RED BLOOD COUNT 4.08 M/UL (4.20-5.40); RED CELL DISTRIBUTION WIDTH 11.9 % (11.6-14.8); WHITE BLOOD COUNT 6.3 K/UL (4.8-10.8)
[2018-04-29 19:41] LABS: ALANINE AMINOTRANSFERASE 23 U/L (12-78); ALBUMIN 3.5 G/DL (3.4-5.0); ALBUMIN/GLOBULIN RATIO 0.9 (1.0-2.7); ALKALINE PHOSPHATASE 71 U/L (46-116); ASPARTATE AMINO TRANSFERASE 19 U/L (15-37); BILIRUBIN,TOTAL 0.9 MG/DL (0.2-1.0)
[2018-04-29 21:20] VITALS: BP 139/78
[2018-04-29 22:07] VITALS: BP 135/78
--- NOTE | 2018-04-29 22:07 | NUR ---
ED Nurse Note: pt is cleared to be d/c per ERMD, pt discharge/aftercare instruction provided, pt advised to follow up with pcp in regards to medication and management per ERMD, pt education done via discussion and hand out, pt verbalized understanding and agrees with plan, iv d/c and dressing applied, wristband removed, pt vss, ambulatory w/ steady gait, all belongings left w/ pt.
--- NOTE | 2018-04-29 23:57 | Emergency Room Report ---
History of Present Illness General Chief Complaint: Hypertension Source: Medical Record Present Illness HPI Patient is a 67-year-old female presented after increased blood pressure. Patient states that she had been having increased numbness to both arms. She reports having intermittent episodes where she would feel like tingling sensations which were increasingly bothersome. Patient denies any fever. She reports taking medications for anxiety. She denies any vomiting. She reports having some intermittent headache. Patient denies being a smoker. She states that she is adamant her blood pressure medications adjusted recently. She states she previously had been taking metoprolol however this is been discontinued after she began having bradycardia. Allergies: Coded Allergies: CODEINE (Unverified Allergy, Unknown, 10/03/15) Patient History Past Medical History: see triage record Reviewed Nursing Documentation: PMH: Agreed; PSxH: Agreed Nursing Documentation-PMH Past Medical History: No History, Except For Hx Cardiac Problems: Yes - Hyperlipidemia Hx Hypertension: Yes Hx Cancer: Yes - Leiomyoma of Uterus Hx Gastrointestinal Problems: Yes - GERD Hx Neurological Problems: No Review of Systems All Other Systems: negative except mentioned in HPI Physical Exam Vital Signs Date Time Temp Pulse Resp B/P (MAP) Pulse Ox O2 Delivery O2 Flow Rate FiO2 04/29/18 18:15 97.5 92 18 196/119 97 Room Air Sp02 EP Interpretation: reviewed, normal General Appearance: normal inspection, well appearing, no apparent distress, alert, GCS 15, non-toxic Head: atraumatic ENT: normal ENT inspection, hearing grossly normal, normal voice Neck: normal inspection, full range of motion, supple, no bony tend Respiratory: normal inspection, lungs clear, normal breath sounds, no respiratory distress, no retraction, no wheezing Cardiovascular #1: regular rate, rhythm, no edema Gastrointestinal: normal inspection, normal bowel sounds, non tender, soft, no guarding, no hernia Genitourinary: no CVA tenderness Musculoskeletal: normal inspection, back normal, normal range of motion Neurologic: normal inspection, alert, responsive, speech normal Psychiatric: normal inspection, judgement/insight normal, mood/affect normal Skin: normal inspection, normal color, no rash Medical Decision Making Diagnostic Impression: Primary Impression: Hypertension ER Course Patient presented for hypertension and bilateral arm tingling. Differential diagnosis include was not limited to CVA, myocardial infarction, hypertensive crisis among others. Patient was noted to have markedly elevated blood pressure. Patient states that tingling was somewhat chronic. Patient was given medications for symptomatic treatment. EKG interpreted by me showed normal sinus rhythm with diffuse T wave inversion. EKG previous EKGs had shown similar symptoms per patient. Patient was offered inpatient admission which she vehemently declined. Patient was noted to have improvement in her blood pressure after medications with clonidine as well as IV magnesium. Patient was noted to have some continued numbness to both extremities patient was advised that she should continue further workup of MRI. Patient was advised to return if she changed her mind regarding admission. CT of the head read by radiology showed no evidence of acute intracranial process. Labs Test 04/29/18 19:10 White Blood Count 6.3 K/UL (4.8-10.8) Red Blood Count 4.08 M/UL (4.20-5.40) Hemoglobin 13.7 G/DL (12.0-16.0) Hematocrit 41.0 % (37.0-47.0) Mean Corpuscular Volume 101 FL (80-99) Mean Corpuscular Hemoglobin 33.7 PG (27.0-31.0) Mean Corpuscular Hemoglobin Concent 33.5 G/DL (32.0-36.0) Red Cell Distribution Width 11.9 % (11.6-14.8) Platelet Count 187 K/UL (150-450) Mean Platelet Volume 7.3 FL (6.5-10.1) Neutrophils (%) (Auto) 53.2 % (45.0-75.0) Lymphocytes (%) (Auto) 32.9 % (20.0-45.0) Monocytes (%) (Auto) 9.0 % (1.0-10.0) Eosinophils (%) (Auto) 2.6 % (0.0-3.0) Basophils (%) (Auto) 2.4 % (0.0-2.0) Prothrombin Time 11.1 SEC (9.30-11.50) Prothromb Time International Ratio 1.1 (0.9-1.1) Activated Partial Thromboplast Time 28 SEC (23-33) Urine Color Pale yellow Urine Appearance Clear Urine pH 7 (4.5-8.0) Urine Specific Kegley 1.010 (1.005-1.035) Urine Protein Negative (NEGATIVE) Urine Glucose (UA) Negative (NEGATIVE) Urine Ketones Negative (NEGATIVE) Urine Blood Negative (NEGATIVE) Urine Nitrite Negative (NEGATIVE) Urine Bilirubin Negative (NEGATIVE) Urine Urobilinogen Normal MG/DL (0.0-1.0) Urine Leukocyte Esterase 3+ (NEGATIVE) Urine RBC 0-2 /HPF (0 - 2) Urine WBC 2-4 /HPF (0 - 2) Urine Squamous Epithelial Cells Few /LPF (NONE/OCC) Urine Bacteria Few /HPF (NONE) Sodium Level 144 MMOL/L (136-145) Potassium Level 3.9 MMOL/L (3.5-5.1) Chloride Level 106 MMOL/L (98-107) Carbon Dioxide Level 29 MMOL/L (21-32) Anion Gap 9 mmol/L (5-15) Blood Urea Nitrogen 14 mg/dL (7-18) Creatinine 0.9 MG/DL (0.55-1.30) Estimat Glomerular Filtration Rate > 60 mL/min (>60) Glucose Level 105 MG/DL (74-106) Calcium Level 9.2 MG/DL (8.5-10.1) Total Bilirubin 0.9 MG/DL (0.2-1.0) Aspartate Amino Transf (AST/SGOT) 19 U/L (15-37) Alanine Aminotransferase (ALT/SGPT) 23 U/L (12-78) Alkaline Phosphatase 71 U/L (46-116) Troponin I 0.000 ng/mL (0.000-0.056) Total Protein 7.4 G/DL (6.4-8.2) Albumin 3.5 G/DL (3.4-5.0) Globulin 3.9 g/dL Albumin/Globulin Ratio 0.9 (1.0-2.7) Urine Opiates Screen Negative (NEGATIVE) Urine Barbiturates Screen Negative (NEGATIVE) Phencyclidine (PCP) Screen Negative (NEGATIVE) Urine Amphetamines Screen Negative (NEGATIVE) Urine Benzodiazepines Screen Negative (NEGATIVE) Urine Cocaine Screen Negative (NEGATIVE) Urine Marijuana (THC) Screen Negative (NEGATIVE) EKG Diagnostic Results Rate: normal Rhythm: NSR ST Segments: other - diffuse twave inversion Last Vital Signs Date Time Temp Pulse Resp B/P (MAP) Pulse Ox O2 Delivery O2 Flow Rate FiO2 04/29/18 22:07 98.7 70 18 135/78 96 Room Air Status: improved Disposition: HOME, SELF-CARE Condition: Stable Referrals: primary care physician 1-2 days for adjustment of blood pressure medications Patient Instructions: Hypertension Lane Nicole MD Apr 29, 2018 23:57
--- NOTE | 2018-04-30 10:15 | Diagnostic Imaging Report ---
Indications: Weakness, dizziness, blood pressure elevation, headache Technique: Spiral acquisitions obtained through the brain. Angled axial and coronal 5 x 5 mm slices were reconstructed. Total dose length product 1340.76 mGycm. CTDI vol(s) 70.38 mGy. Dose reduction achieved using automated exposure control Comparison: 10/03/2015 Findings: No acute intracranial hemorrhage nor edema, mass effect, nor midline shift. Normal martinez-white differentiation. There is minimal periventricular deep white matter low-attenuation. Normal size ventricles and extra-axial CSF spaces. Extensive falx calcifications again noted. The orbits are unremarkable. The included sinuses are clear. The mastoids are clear. The calvarium is intact. Impression: Negative for acute intracranial bleed or mass effect Minimal periventricular deep white matter low attenuation consistent with chronic ischemic change This agrees with the preliminary interpretation provided overnight by [facility]erad[facility] service. The CT scanner at [facility] is accredited by the [employer] [employer] and the scans are performed using protocols designed to limit radiation exposure to as low as reasonably achievable to attain images of sufficient resolution adequate for diagnostic evaluation.
== END 2018-04-29 22:10 | disposition home or self-care (01) ==
LOC: EMR 18:27
DX: I10 Essential (primary) hypertension (principal); R20.2 Paresthesia of skin; Z88.5 Allergy status to narcotic agent; K21.9 Gastro-esophageal reflux disease without esophagitis; E78.5 Hyperlipidemia, unspecified
CPT/HCPCS: 36415; 70450; 80053; 80307; 81001; 84484; 85025; 85610; 85730; 93005; 96365; 96375; 99284

== ENCOUNTER 2018-09-08 12:59 | Emergency (ER) | payer MEDICARE, MEDICAID ==
[~2018-09-08] VITALS: Ht 177.8 cm; Wt 81.6 kg
[~2018-09-08 12:59] MED LIST changes: +UNOBMED
[2018-09-08] MEDS ORDERED: UNOBMED (13:34)
[2018-09-08 13:38] LABS: BASOPHILS % (AUTO) 1.9 % (0.0-2.0); EOSINOPHILS % (AUTO) 0.8 % (0.0-3.0); HEMATOCRIT 44.7 % (37.0-47.0); HEMOGLOBIN 14.6 G/DL (12.0-16.0); LYMPHOCYTES % (AUTO) 26.4 % (20.0-45.0); MEAN CORPUSCULAR VOLUME 103 FL (80-99); MONOCYTES % (AUTO) 8.5 % (1.0-10.0); NEUTROPHILS % (AUTO) 62.4 % (45.0-75.0); PLATELET COUNT 191 K/UL (150-450); RED BLOOD COUNT 4.34 M/UL (4.20-5.40); WHITE BLOOD COUNT 6.9 K/UL (4.8-10.8)
[2018-09-08 13:42] VITALS: BP 156/95
[2018-09-08 13:51] LABS: ANION GAP 15 mmol/L (5-15); BLOOD UREA NITROGEN 14 mg/dL (7-18); CALCIUM 9.8 MG/DL (8.5-10.1); CARBON DIOXIDE 23 MMOL/L (21-32); CHLORIDE 102 MMOL/L (98-107); CREATININE 0.9 MG/DL (0.55-1.30); POTASSIUM 3.7 MMOL/L (3.5-5.1); SODIUM 140 MMOL/L (136-145)
--- NOTE | 2018-09-08 14:42 | Emergency Room Report ---
History of Present Illness General Chief Complaint: Hypertension Source: Patient, Medical Record (EnrikesirishaJaimemadelaine Lux DO) Present Illness HPI The patient states that over the past few days she has been very fatigued. She states she just does not feel right. She states she has hot flashes and is anxious. She has tingling in her hands and her feet. She states that her blood pressure has been elevated. She denies that she has a history of anxiety or panic. She is crying and panicking during my evaluation. She is not quite sure why. She keeps stating that she is not anxious. However, she is unable to articulate why she is so upset. She has no other specific complaints. She denies chest pain. She denies abdominal pain. She denies headache or neck pain. She denies recent illness. She denies alcohol or drug use. She has no other complaints. (Leana Mai DO) Allergies: Coded Allergies: CODEINE (Unverified Allergy, Unknown, 10/03/15) Patient History Past Medical History: see triage record, HTN, other - HLP Social History: Denies: smoking, alcohol use, drug use Reviewed Nursing Documentation: PMH: Agreed; PSxH: Agreed (Leana Mai DO) Nursing Documentation-PMH Past Medical History: No History, Except For Hx Cardiac Problems: Yes - Hyperlipidemia Hx Hypertension: Yes Hx Cancer: Yes - Leiomyoma of Uterus Hx Gastrointestinal Problems: Yes - GERD Hx Neurological Problems: No (Leana Mai DO) Review of Systems All Other Systems: negative except mentioned in HPI (Leana Mai DO) Physical Exam Vital Signs Date Time Temp Pulse Resp B/P (MAP) Pulse Ox O2 Delivery O2 Flow Rate FiO2 09/08/18 13:01 97.5 87 16 190/109 (136) 99 Room Air Sp02 EP Interpretation: reviewed, normal General Appearance: no apparent distress, alert, GCS 15, non-toxic Head: normocephalic, atraumatic Eyes: bilateral eye normal inspection, bilateral eye PERRL ENT: hearing grossly normal, normal pharynx, no angioedema, normal voice Neck: full range of motion, supple/symm/no masses Respiratory: chest non-tender, lungs clear, normal breath sounds, no respiratory distress, no retraction, no accessory muscle use, speaking full sentences Cardiovascular #1: regular rate, rhythm, no edema Gastrointestinal: normal bowel sounds, non tender, soft, non-distended, no guarding, no rebound Rectal: deferred Musculoskeletal: back normal, gait/station normal, normal range of motion, non- tender Neurologic: alert, oriented x3, responsive, motor strength/tone normal, sensory intact, speech normal Psychiatric: judgement/insight normal, memory normal, no suicidal/homicidal ideation, anxious - crying, panicing (Leana Mai DO) Medical Decision Making Diagnostic Impression: Primary Impression: Anxiety Additional Impressions: Hypertension Qualified Codes: I10 - Essential (primary) hypertension Acute hyperventilation syndrome ER Course I suspect this patient has anxiety and hyperventilation syndrome. She did have uncontrolled hypertension which could be medication non-compliance and diet related. Lab w/u was unremarkable. She is pending TFT at the time of turnover to Dr. Navarrete. Laboratory Tests Test 09/08/18 13:10 White Blood Count 6.9 K/UL (4.8-10.8) Red Blood Count 4.34 M/UL (4.20-5.40) Hemoglobin 14.6 G/DL (12.0-16.0) Hematocrit 44.7 % (37.0-47.0) Mean Corpuscular Volume 103 FL (80-99) H Mean Corpuscular Hemoglobin 33.6 PG (27.0-31.0) H Mean Corpuscular Hemoglobin Concent 32.6 G/DL (32.0-36.0) Red Cell Distribution Width 12.0 % (11.6-14.8) Platelet Count 191 K/UL (150-450) Mean Platelet Volume 8.0 FL (6.5-10.1) Neutrophils (%) (Auto) 62.4 % (45.0-75.0) Lymphocytes (%) (Auto) 26.4 % (20.0-45.0) Monocytes (%) (Auto) 8.5 % (1.0-10.0) Eosinophils (%) (Auto) 0.8 % (0.0-3.0) Basophils (%) (Auto) 1.9 % (0.0-2.0) Sodium Level 140 MMOL/L (136-145) Potassium Level 3.7 MMOL/L (3.5-5.1) Chloride Level 102 MMOL/L (98-107) Carbon Dioxide Level 23 MMOL/L (21-32) Anion Gap 15 mmol/L (5-15) Blood Urea Nitrogen 14 mg/dL (7-18) Creatinine 0.9 MG/DL (0.55-1.30) Estimate Glomerular Filtration Rate > 60 mL/min (>60) Glucose Level 147 MG/DL (74-106) H Calcium Level 9.8 MG/DL (8.5-10.1) Troponin I 0.000 ng/mL (0.000-0.056) (Leana Mai DO) ER Course Please see above note. Thyroid functions normal. Patient refuses to be hospitalized. I spent time discussing with her that this could have a cardiac cause. She insists that she wants to go home. I told her that she risks by leaving. 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 She feels fine now and her blood pressures improved. Discussed with patient hyperventilation syndrome. Is clear that she had carpal pedal spasms in perioral paresthesias and tingling. These have resolved. The patient requested a prescription for Ativan. This was declined as she is signing out AGAINST MEDICAL ADVICE. Laboratory Tests Test 09/08/18 13:10 09/08/18 14:30 White Blood Count 6.9 K/UL (4.8-10.8) Red Blood Count 4.34 M/UL (4.20-5.40) Hemoglobin 14.6 G/DL (12.0-16.0) Hematocrit 44.7 % (37.0-47.0) Mean Corpuscular Volume 103 FL (80-99) H Mean Corpuscular Hemoglobin 33.6 PG (27.0-31.0) H Mean Corpuscular Hemoglobin Concent 32.6 G/DL (32.0-36.0) Red Cell Distribution Width 12.0 % (11.6-14.8) Platelet Count 191 K/UL (150-450) Mean Platelet Volume 8.0 FL (6.5-10.1) Neutrophils (%) (Auto) 62.4 % (45.0-75.0) Lymphocytes (%) (Auto) 26.4 % (20.0-45.0) Monocytes (%) (Auto) 8.5 % (1.0-10.0) Eosinophils (%) (Auto) 0.8 % (0.0-3.0) Basophils (%) (Auto) 1.9 % (0.0-2.0) Sodium Level 140 MMOL/L (136-145) Potassium Level 3.7 MMOL/L (3.5-5.1) Chloride Level 102 MMOL/L (98-107) Carbon Dioxide Level 23 MMOL/L (21-32) Anion Gap 15 mmol/L (5-15) Blood Urea Nitrogen 14 mg/dL (7-18) Creatinine 0.9 MG/DL (0.55-1.30) Estimate Glomerular Filtration Rate > 60 mL/min (>60) Glucose Level 147 MG/DL (74-106) H Calcium Level 9.8 MG/DL (8.5-10.1) Troponin I 0.000 ng/mL (0.000-0.056) Urine Color Yellow Urine Appearance Clear Urine pH 8 (4.5-8.0) Urine Specific [place] 1.010 (1.005-1.035) Urine Protein Negative (NEGATIVE) Urine Glucose (UA) Negative (NEGATIVE) Urine Ketones 3+ (NEGATIVE) H Urine Blood Negative (NEGATIVE) Urine Nitrite Negative (NEGATIVE) Urine Bilirubin Negative (NEGATIVE) Urine Urobilinogen Normal MG/DL (0.0-1.0) Urine Leukocyte Esterase 2+ (NEGATIVE) H Urine RBC 0-2 /HPF (0 - 2) Urine WBC 0-2 /HPF (0 - 2) Urine Squamous Epithelial Cells Few /LPF (NONE/OCC) Urine Bacteria Few /HPF (NONE) Thyroid Stimulating Hormone (TSH) 1.215 uiU/mL (0.358-3.740) Free Thyroxine 1.34 NG/DL (0.76-1.46) Free Triiodothyronine 2.7 pg/mL (2.3-4.2) Urine Opiates Screen Negative (NEGATIVE) Urine Barbiturates Screen Negative (NEGATIVE) Phencyclidine (PCP) Screen Negative (NEGATIVE) Urine Amphetamines Screen Negative (NEGATIVE) Urine Benzodiazepines Screen Negative (NEGATIVE) Urine Cocaine Screen Negative (NEGATIVE) Urine Marijuana (THC) Screen Negative (NEGATIVE) Serum Alcohol < 3 mg/dL (Hunter Navarrete MD) EKG Diagnostic Results Rate: normal Rhythm: NSR Other Impression NSST findings. (Critical access hospital) Rhythm Strip Diag. Results EP Interpretation: yes Rate: 60's Rhythm: NSR, no PVC's, no ectopy (Critical access hospital) Last Vital Signs Date Time Temp Pulse Resp B/P (MAP) Pulse Ox O2 Delivery O2 Flow Rate FiO2 09/08/18 13:42 87 16 Room Air 09/08/18 13:42 97.5 156/95 99 (Critical access hospital) Last Vital Signs Date Time Temp Pulse Resp B/P (MAP) Pulse Ox O2 Delivery O2 Flow Rate FiO2 09/08/18 16:39 97.5 82 16 156/95 99 Room Air Status: improved (Hunter Navarrete MD) Disposition: AGAINST MEDICAL ADVICE Condition: Improved Leana Mai . Sep 08, 2018 14:42 Hunter Navarrete MD Sep 08, 2018 16:25
[2018-09-08] MEDS ORDERED: LORazepam 0.5mg tab ORAL ONE (14:45)
[2018-09-08 15:06] LABS: APPEARANCE,URINE CLEAR; BILIRUBIN, URINE NEGATIVE (NEGATIVE); GLUCOSE, URINE (UA) NEGATIVE (NEGATIVE); KETONES,URINE 3+ (NEGATIVE); LEUKOCYTE ESTERASE ,URINE 2+ (NEGATIVE); NITRITE,URINE NEGATIVE (NEGATIVE); PH,URINE 8 (4.5-8.0); PROTEIN,URINE NEGATIVE (NEGATIVE); UROBILINOGEN,URINE NORMAL MG/DL (0.0-1.0)
[2018-09-08 15:10] LABS: COLOR,URINE YELLOW
--- NOTE | 2018-09-08 15:50 | Diagnostic Imaging Report ---
Indication: Dyspnea Comparison: None A single view chest radiograph was obtained. Findings: No definite infiltrate or pulmonary vascular congestion identified. The heart is relatively normal in size. The aorta is mildly enlarged consistent with atherosclerotic vascular disease. The bones are osteopenic. Impression: No acute disease
[2018-09-08 16:38] VITALS: BP 152/94
[2018-09-08 16:39] VITALS: BP 156/95
== END 2018-09-08 16:42 | disposition left against medical advice (07) ==
LOC: EMR 13:35 → CANBEDREQ 16:26 → EMR 16:42
DX: F41.9 Anxiety disorder, unspecified (principal); I10 Essential (primary) hypertension; F45.8 Other somatoform disorders; Z88.6 Allergy status to analgesic agent; E78.5 Hyperlipidemia, unspecified; Z85.42 Personal history of malignant neoplasm of other parts of uterus; K21.9 Gastro-esophageal reflux disease without esophagitis
CPT/HCPCS: 36415; 71045; 80048; 80307; 81003; 84439; 84443; 84481; 84484; 85025; 96374; 96375; 99284; G0480; J0360; J2405; 80329